=== PATIENT | male | born 1980 | race Caucasian/White ===

== ENCOUNTER 2017-11-11 13:05 | Inpatient (IN) | payer BC ==
[~2017-11-11] VITALS: Ht 165.1 cm; Wt 220.0 kg
[2017-11-11] MEDS ORDERED: ZESTORETIC 25 M1 TAB PO (13:23)
[2017-11-11] MEDS ORDERED: GLUCOPHAGE1000 MG PO (13:23)
[2017-11-11] MEDS ORDERED: LOPRESSOR 550 MG/TAB PO (13:24)
[2017-11-11 14:18] LABS: BASO # 0.1 (0.0-0.2); BASO % 0.8 % (0.0-2.0); EOS # 0.3 (0.0-0.7); EOS % 2.7 % (0-4.0); GRAN # 6.7 (1.4-6.5); GRAN % 73.1 % (42.2-75.2); HEMATOCRIT 38.2 % (42.0-52.0); HEMOGLOBIN 12.9 g/dl (13.5-18.0); LYMPH # 1.3 (1.2-3.4); LYMPH % 14.3 % (20.0-51.0); MEAN CELL VOLUME 91 fl (80.0-100.0); MEAN CORPUSCULAR HEMOGLOBIN 31 pg (27.0-31.0); MEAN CORPUSCULAR HGB CONC 34 g/dl (33.0-37.0); MEAN PLATELET VOLUME 8.5 fl (7.4-10.4); MONO # 0.8 (0.1-0.6); MONO % 8.2 % (1.7-9.3); PLATELET COUNT 370 K/mm3 (130-400); RED BLOOD COUNT 4.18 M/mm3 (4.20-5.60); REDCELL DISTRIBUTION WIDTH-CV 12.2 % (11.5-14.5)
[2017-11-11 14:37] LABS: ALBUMIN 3.9 gm/dL (3.5-5.0); BILIRUBIN,TOTAL 0.6 mg/dL (0.0-1.0); CALCIUM 8.9 mg/dL (8.4-10.2); CREATININE, serum 0.98 mg/dL (0.66-1.25); POTASSIUM 3.7 mmol/L (3.4-5.0); TOTAL PROTEIN 7.9 gm/dL (6.4-8.2)
[2017-11-11 14:38] VITALS: BP 177/92; PULSE 98; TEMP 99.2
[2017-11-11 16:42] VITALS: BP 149/79; PULSE 42; TEMP 98.6
[2017-11-11 19:55] VITALS: BP 142/68; PULSE 87; TEMP 98.8
[2017-11-11 23:43] VITALS: BP 139/73; PULSE 79; TEMP 99.1
[2017-11-12 03:35] VITALS: BP 128/74; PULSE 72; TEMP 98.2
[2017-11-12 07:52] VITALS: BP 135/72; PULSE 79; TEMP 99.1
[2017-11-12 09:10] LABS: BASO # 0.1 (0.0-0.2); BASO % 0.7 % (0.0-2.0); EOS # 0.2 (0.0-0.7); EOS % 2.7 % (0-4.0); GRAN # 5.2 (1.4-6.5); GRAN % 69.9 % (42.2-75.2); HEMATOCRIT 39.1 % (42.0-52.0); HEMOGLOBIN 12.9 g/dl (13.5-18.0); LYMPH # 1.2 (1.2-3.4); LYMPH % 16.6 % (20.0-51.0); MEAN CELL VOLUME 93 fl (80.0-100.0); MEAN CORPUSCULAR HEMOGLOBIN 31 pg (27.0-31.0); MEAN CORPUSCULAR HGB CONC 33 g/dl (33.0-37.0); MEAN PLATELET VOLUME 8.7 fl (7.4-10.4); MONO # 0.7 (0.1-0.6); MONO % 9.3 % (1.7-9.3); PLATELET COUNT 364 K/mm3 (130-400); REDCELL DISTRIBUTION WIDTH-CV 12.4 % (11.5-14.5)
[2017-11-12 09:34] LABS: CREATININE, serum 1.05 mg/dL (0.66-1.25); POTASSIUM 3.8 mmol/L (3.4-5.0)
[2017-11-12 12:05] VITALS: BP 138/77; PULSE 72; TEMP 98.3
[2017-11-12 16:03] VITALS: BP 139/77; PULSE 80; TEMP 97.9
[2017-11-12 20:57] VITALS: BP 150/92; PULSE 89; TEMP 98.2
[2017-11-13] VITALS (7 sets, daily range): BP systolic 119–147; BP diastolic 74–91; PULSE 72–97; TEMP 97.8–99.1
[2017-11-13 07:29] LABS: BASO # 0.1 (0.0-0.2); BASO % 1.1 % (0.0-2.0); EOS # 0.3 (0.0-0.7); EOS % 4.5 % (0-4.0); GRAN # 4.9 (1.4-6.5); GRAN % 66.6 % (42.2-75.2); HEMATOCRIT 37.3 % (42.0-52.0); HEMOGLOBIN 12.7 g/dl (13.5-18.0); LYMPH # 1.3 (1.2-3.4); LYMPH % 17.1 % (20.0-51.0); MEAN CELL VOLUME 91 fl (80.0-100.0); MEAN CORPUSCULAR HEMOGLOBIN 31 pg (27.0-31.0); MEAN CORPUSCULAR HGB CONC 34 g/dl (33.0-37.0); MEAN PLATELET VOLUME 8.5 fl (7.4-10.4); MONO # 0.7 (0.1-0.6); MONO % 9.7 % (1.7-9.3); PLATELET COUNT 357 K/mm3 (130-400); RED BLOOD COUNT 4.09 M/mm3 (4.20-5.60); REDCELL DISTRIBUTION WIDTH-CV 12.2 % (11.5-14.5)
[2017-11-13 07:49] LABS: CREATININE, serum 0.99 mg/dL (0.66-1.25); POTASSIUM 3.8 mmol/L (3.4-5.0)
[2017-11-13 08:12] LABS: HIV 1/2 Antibodies Non-Reactive; HIV-1p24 Antigen Non-Reactive
[2017-11-14 04:10] VITALS: BP 140/86; PULSE 79; TEMP 97.8
[2017-11-14 07:00] LABS: BASO # 0.1 (0.0-0.2); BASO % 0.7 % (0.0-2.0); EOS # 0.4 (0.0-0.7); EOS % 5.1 % (0-4.0); GRAN # 4.8 (1.4-6.5); HEMATOCRIT 38.6 % (42.0-52.0); HEMOGLOBIN 12.9 g/dl (13.5-18.0); LYMPH # 1.2 (1.2-3.4); LYMPH % 16.8 % (20.0-51.0); MEAN CELL VOLUME 93 fl (80.0-100.0); MEAN CORPUSCULAR HEMOGLOBIN 31 pg (27.0-31.0); MEAN CORPUSCULAR HGB CONC 33 g/dl (33.0-37.0); MEAN PLATELET VOLUME 8.5 fl (7.4-10.4); MONO # 0.7 (0.1-0.6); MONO % 10.3 % (1.7-9.3); PLATELET COUNT 363 K/mm3 (130-400); RED BLOOD COUNT 4.16 M/mm3 (4.20-5.60); REDCELL DISTRIBUTION WIDTH-CV 12.2 % (11.5-14.5)
[2017-11-14 07:21] LABS: CALCIUM 9.4 mg/dL (8.4-10.2); CREATININE, serum 1.11 mg/dL (0.66-1.25); PHOSPHOROUS 3.8 mg/dL (2.5-4.5); POTASSIUM 4.1 mmol/L (3.4-5.0)
[2017-11-14 07:32] VITALS: BP 147/85; PULSE 78; TEMP 97.8
[2017-11-14 12:09] VITALS: BP 140/83; PULSE 74; TEMP 97.9
[2017-11-14 14:59] VITALS: BP 142/82; PULSE 86; TEMP 98.1
[2017-11-14 20:25] VITALS: BP 145/85; PULSE 92; TEMP 98.5
[2017-11-15 00:04] VITALS: BP 135/85; PULSE 83; TEMP 98.1
[2017-11-15 04:09] VITALS: BP 148/77; PULSE 82; TEMP 97.6
[2017-11-15 07:05] LABS: BASO # 0.1 (0.0-0.2); BASO % 0.8 % (0.0-2.0); EOS # 0.4 (0.0-0.7); EOS % 4.6 % (0-4.0); GRAN % 67.5 % (42.2-75.2); HEMATOCRIT 39.6 % (42.0-52.0); HEMOGLOBIN 13.3 g/dl (13.5-18.0); LYMPH # 1.3 (1.2-3.4); MEAN CELL VOLUME 92 fl (80.0-100.0); MEAN CORPUSCULAR HEMOGLOBIN 31 pg (27.0-31.0); MEAN CORPUSCULAR HGB CONC 34 g/dl (33.0-37.0); MEAN PLATELET VOLUME 8.9 fl (7.4-10.4); MONO % 11.1 % (1.7-9.3); PLATELET COUNT 371 K/mm3 (130-400); RED BLOOD COUNT 4.29 M/mm3 (4.20-5.60); REDCELL DISTRIBUTION WIDTH-CV 12.5 % (11.5-14.5)
[2017-11-15 07:16] LABS: CALCIUM 9.4 mg/dL (8.4-10.2); CREATININE, serum 1.07 mg/dL (0.66-1.25)
[2017-11-15 07:20] VITALS: BP 149/86; PULSE 95; TEMP 98
[2017-11-15] MEDS ORDERED: LEVAQUIN 750MG750 M1 PO (10:15)
[2017-11-15] MEDS ORDERED: CLEOCIN HCL300 MG PO (10:19)
[2017-11-15] MEDS ORDERED: PROAIR HFA0.09 MG/AC IH (10:20)
[2017-11-15 11:14] VITALS: BP 144/81; PULSE 76; TEMP 98.6
== END 2017-11-15 12:25 | disposition home or self-care (01) | DRG 194 ==
LOC: MEDICAL 13:05
PROVIDERS: Internal Medicine; Internal Medicine Infectious Disease; Nurse Practitioner Family; Physician Assistant
PROC: 02HV33Z Insertion of Infusion Device into Superior Vena Cava, Percutaneous Approach (ICD-10-PCS; principal; 2017-11-14)
DX: J18.9 Pneumonia, unspecified organism (principal); Z68.45 Body mass index [BMI] 70 or greater, adult; E11.9 Type 2 diabetes mellitus without complications; E66.01 Morbid (severe) obesity due to excess calories; I10 Essential (primary) hypertension; D64.9 Anemia, unspecified; Z79.84 Long term (current) use of oral hypoglycemic drugs; Z88.0 Allergy status to penicillin
CPT/HCPCS: 99223-AI; 99231-AI; 99232-AI; 99239; C1751; C1894; J1644; J1650; J1956; J3370; J7040; J7050

== ENCOUNTER 2017-12-23 06:15 | Day surgery (SDC) | payer BC ==
[2017-12-23] VITALS (150 sets, daily range): BP systolic 125–147; BP diastolic 74–92; PULSE 75–80; TEMP 99.1; O2SAT 92–99
[~2017-12-23] VITALS: Ht 165.1 cm; Wt 218.8 kg
[~2017-12-23 06:15] MED LIST: CLEOCIN HCL300 MG PO; GLUCOPHAGE1000 MG PO; LEVAQUIN 750MG750 M1 PO; LOPRESSOR 550 MG/TAB PO; PROAIR HFA0.09 MG/AC IH; ZESTORETIC 25 M1 TAB PO
[2017-12-23 07:53] LABS: BASO # 0.1 (0.0-0.2); EOS # 0.3 (0.0-0.7); GRAN # 5.7 (1.4-6.5); GRAN % 66.8 % (42.2-75.2); HEMATOCRIT 40.5 % (42.0-52.0); HEMOGLOBIN 13.4 g/dl (13.5-18.0); LYMPH # 1.7 (1.2-3.4); LYMPH % 19.5 % (20.0-51.0); MEAN CELL VOLUME 93 fl (80.0-100.0); MEAN CORPUSCULAR HEMOGLOBIN 31 pg (27.0-31.0); MEAN CORPUSCULAR HGB CONC 33 g/dl (33.0-37.0); MEAN PLATELET VOLUME 8.6 fl (7.4-10.4); MONO # 0.7 (0.1-0.6); PLATELET COUNT 377 K/mm3 (130-400); RED BLOOD COUNT 4.37 M/mm3 (4.20-5.60); REDCELL DISTRIBUTION WIDTH-CV 12.4 % (11.5-14.5)
== END 2017-12-23 11:47 | disposition home or self-care (01) ==
LOC: SDCO 06:15 → ICU 06:20 → SDCO 06:20 → ICU 11:47
PROVIDERS: Internal Medicine Pulmonary Disease
DX: J18.1 Lobar pneumonia, unspecified organism (principal); I10 Essential (primary) hypertension; E11.9 Type 2 diabetes mellitus without complications; Z79.84 Long term (current) use of oral hypoglycemic drugs; G47.30 Sleep apnea, unspecified; E66.9 Obesity, unspecified; Z88.0 Allergy status to penicillin
CPT/HCPCS: OP; J0330; J2250; J2405; J2704; J3010